=== PATIENT | male | born 1960 ===

== ENCOUNTER 2021-05-10 23:55 | Inpatient (IN) | payer SELFPAY ==
[2021-05-11 00:58] LABS: Hemoglobin 5.2 g/dL (14.0-18.0); Mean Corpuscular HGB CONC 29.4 g/dL (32.0-36.0); Mean Corpuscular Hemoglobin 20.9 pg (27.0-31.0); Mean Corpuscular Volume 70.9 fL (78.0-98.0); Mean Platelet Volume 8.8 fL (7.4-10.4); Platelet Count 200 thou/uL (130-400); Prothrombin Time 23.2 sec (12.0-14.7); Red Blood Cell (RBC) Count 2.49 mill/uL (4.70-6.10); White Blood Cell (WBC) Count 22.6 thou/uL (4.8-10.8)
[2021-05-11 00:59] LABS: PTT 33.6 sec (22.9-36.1)
[2021-05-11 01:12] LABS: ALT (SGPT) 17 U/L (8-55); AST (SGOT) 19 U/L (5-34); Alkaline Phosphatase 55 U/L (40-110); BUN (Urea Nitrogen) 18 mg/dL (8.4-25.7); Bilirubin, Total 1.8 mg/dL (0.2-1.2); Calc. Creatinine Clearance 0 mL/min (70-130); Calcium 7.1 mg/dL (7.8-10.44); Carbon Dioxide 16 mmol/L (23-31); Globulin 1.8 g/dL (2.4-3.5); Glucose 274 mg/dL (80-115); Protein, Total 3.8 g/dL (5.8-8.1)
[2021-05-11 01:15] LABS: Anisocytosis SLIGHT = 6-15 cells (100X) (0-5/hpf); Band 5 % (5-11); Hypochromia SLIGHT = 6-15 cells (100X) (0-5/hpf); MDiff Complete? YES; Microcytosis SLIGHT = 6-15 cells (100X) (0-5/hpf); Monocytes 1 % (0-10); Neutrophil 94 % (42-75); Polychromasia SLIGHT = 2-3 cells (100X) (0-2/hpf)
[2021-05-11 01:24] LABS: CKMB 2.3 ng/mL (0-6.6)
[2021-05-11 01:26] LABS: Chloride 101 mmol/L (98-107); Potassium 5.1 mmol/L (3.5-5.1); Sodium 131 mmol/L (136-145)
[2021-05-11 01:32] LABS: Anion Gap 19 mmol/L (10-20)
[2021-05-11] MEDS ORDERED: Pantoprazole 40 MG VIAL IVP SCH ×3 (02:00→09:00)
[2021-05-11] MEDS ORDERED: Ondansetron ODT 4 MG TAB PO PRN (02:08)
[2021-05-11] MEDS ORDERED: Acetaminophen 650 MG Suppository PR PRN (02:08)
[2021-05-11] MEDS ORDERED: Ondansetron PF 4 MG/2 ML Vial IVP PRN (02:08)
[2021-05-11] MEDS ORDERED: Acetaminophen 325 MG TAB PO PRN (02:08)
[2021-05-11] MEDS ORDERED: Furosemide 40 MG/4 ML VIAL SLOW IVP SCH (02:15)
[2021-05-11 02:54] LABS: Iron 18 ug/dL (65-175); Iron Binding Capacity, Total 294 mcg/dL (261-462)
[2021-05-11 03:12] LABS: Troponin I 0.091 ng/mL (< 0.028)
[2021-05-11 03:23] LABS: SARS-CoV-2 NAA Rapid Test Not Detected (NotDetected)
[2021-05-11 04:32] LABS: #Lymphocytes 0.8 thou/uL (1.20-3.40); #Monocytes 1.6 thou/uL (0.11-0.59); %Lymphocytes 4.2 % (21.0-51.0); %Monocytes 8.2 % (0.0-10.0); %Neutrophils 87.6 % (42.0-75.0); Hemoglobin 6.2 g/dL (14.0-18.0); Mean Corpuscular HGB CONC 28.6 g/dL (32.0-36.0); Mean Corpuscular Hemoglobin 21.4 pg (27.0-31.0); Mean Corpuscular Volume 74.8 fL (78.0-98.0); Mean Platelet Volume 8.9 fL (7.4-10.4); Platelet Count 189 thou/uL (130-400); RBC Distribution Width 17.9 % (11.5-14.5); Red Blood Cell (RBC) Count 2.91 mill/uL (4.70-6.10); White Blood Cell (WBC) Count 19.4 thou/uL (4.8-10.8)
[2021-05-11 04:37] LABS: Hemoglobin A1c 5.1 % (4.0-6.0)
[2021-05-11 04:51] LABS: Anion Gap 18 mmol/L (10-20); BUN (Urea Nitrogen) 21 mg/dL (8.4-25.7); Calc. Creatinine Clearance 0 mL/min (70-130); Calcium 7.6 mg/dL (7.8-10.44); Carbon Dioxide 17 mmol/L (23-31); Chloride 101 mmol/L (98-107); Glucose 224 mg/dL (80-115); Magnesium 1.6 mg/dL (1.6-2.6); Potassium 5.3 mmol/L (3.5-5.1); Sodium 131 mmol/L (136-145)
[2021-05-11 04:57] LABS: Lactic Acid 6.8 mmol/L (0.5-2.2)
[2021-05-11 06:26] LABS: Bacteria/HPF None Seen HPF (None Seen); Bilirubin Negative (Negative); Blood, Urine Negative (Negative); Clarity Clear (Clear); Glucose, Urine (Dipstick) Normal (Negative); Ketone, Urine Negative (Negative); Leukocyte Negative Leu/uL (Negative); Nitrite Negative (Negative); Protein, Urine (Dipstick) Negative (Neg-Trace); RBC/HPF 0-3 HPF (0-3); Specific Gravity, Urine 1.009 (1.002-1.036); Squamous Epithelial 0-3 HPF (0-3); Urobilinogen Normal mg/dL (Less than 2); WBC/HPF 0-3 HPF (0-3)
[2021-05-11 06:30] LABS: Urine Culture Reflex No No
[2021-05-11] MEDS: Furosemide 40 MG/4 ML VIAL SLOW IVP SCH (08:16)
[2021-05-11] MEDS ORDERED: FLU VACC QS2021-22(6MOS UP)/PF 60 MCG/0.5 ML SYRINGE IM ONE (09:00)
[2021-05-11 09:31] LABS: Hemoglobin 7.1 g/dL (14.0-18.0); Mean Corpuscular HGB CONC 30.7 g/dL (32.0-36.0); Mean Corpuscular Hemoglobin 23.6 pg (27.0-31.0); Mean Corpuscular Volume 76.7 fL (78.0-98.0); Platelet Count 160 thou/uL (130-400); Red Blood Cell (RBC) Count 3.03 mill/uL (4.70-6.10)
[2021-05-11] MEDS ORDERED: Iopamidol 370 76% 100 ML VIAL ONE (09:44)
[2021-05-11 09:45] LABS: Troponin I 0.096 ng/mL (< 0.028)
[2021-05-11 14:25] LABS: ALT (SGPT) 24 U/L (8-55); AST (SGOT) 24 U/L (5-34); Albumin 2.2 g/dL (3.4-4.8); Alkaline Phosphatase 62 U/L (40-110); Anion Gap 18 mmol/L (10-20); BUN (Urea Nitrogen) 22 mg/dL (8.4-25.7); Bilirubin, Total 3.3 mg/dL (0.2-1.2); Calc. Creatinine Clearance 169 mL/min (70-130); Calcium 7.6 mg/dL (7.8-10.44); Carbon Dioxide 18 mmol/L (23-31); Chloride 98 mmol/L (98-107); Globulin 2.2 g/dL (2.4-3.5); Glucose 199 mg/dL (80-115); Potassium 4.8 mmol/L (3.5-5.1); Protein, Total 4.4 g/dL (5.8-8.1); Sodium 129 mmol/L (136-145)
[2021-05-11] MEDS ORDERED: Ondansetron PF 4 MG/2 ML Vial ONE (16:07)
[2021-05-11] MEDS ORDERED: Succinylcholine 200 MG/10 ml SYRINGE FS ONE (16:07)
[2021-05-11] MEDS ORDERED: PHENYLEPHRINE-NS 100 MCG/ML 10 ML SYRINGE ONE (16:07)
[2021-05-11] MEDS ORDERED: PROPOFOL 200 MG/20 ML VIAL ONE (16:07)
[2021-05-11] MEDS ORDERED: Metoclopramide HCl 10 MG/2 ML VIAL ONE (16:07)
[2021-05-11 17:40] LABS: CO2 Tension 47.1 mmHg (35.0-45.0); pH, Arterial 7.34 (7.35-7.45)
[2021-05-11 17:41] LABS: ALV-art Gradient 598.225 mmHg (0-20); Base Excess (BEa) -1.2 mEq/L (-2.0 to +3.0); O2 Tension (PaO2), arterial 55.9 mmHg (> 80.0); Potassium - ABG Lab 4.95 mmol/L (3.70-5.30); Puncture Site RRA
[2021-05-11] MEDS ORDERED: Propofol 1,000 MG/100 ML VIAL IV ONE (17:42)
[2021-05-11] MEDS ORDERED: Dexmedetomidine 200 MCG/2 ML VIAL SLOW IVP SCH (17:45)
[2021-05-11 18:07] LABS: Hemoglobin 7.1 g/dL (14.0-18.0); Mean Corpuscular HGB CONC 30.9 g/dL (32.0-36.0); Mean Corpuscular Hemoglobin 23.1 pg (27.0-31.0); Mean Corpuscular Volume 74.8 fL (78.0-98.0); Mean Platelet Volume 9.2 fL (7.4-10.4); Platelet Count 224 thou/uL (130-400); RBC Distribution Width 19.9 % (11.5-14.5); Red Blood Cell (RBC) Count 3.06 mill/uL (4.70-6.10); White Blood Cell (WBC) Count 15.2 thou/uL (4.8-10.8)
[2021-05-11 18:16] LABS: Lactic Acid 3.6 mmol/L (0.5-2.2)
[2021-05-11 18:18] LABS: ALT (SGPT) 20 U/L (8-55); AST (SGOT) 25 U/L (5-34); Albumin 2.3 g/dL (3.4-4.8); Alkaline Phosphatase 63 U/L (40-110); Anion Gap 10 mmol/L (10-20); BUN (Urea Nitrogen) 25 mg/dL (8.4-25.7); Bilirubin, Total 3.3 mg/dL (0.2-1.2); Calc. Creatinine Clearance 136 mL/min (70-130); Calcium 7.5 mg/dL (7.8-10.44); Carbon Dioxide 26 mmol/L (23-31); Chloride 100 mmol/L (98-107); Globulin 2.2 g/dL (2.4-3.5); Glucose 200 mg/dL (80-115); Protein, Total 4.5 g/dL (5.8-8.1); Sodium 131 mmol/L (136-145)
[2021-05-11 18:38] LABS: Actual Bicarbonate (HCO3a) 26.4 mEq/L (22-28); Analyzer IN Cardio ER; Base Excess (BEa) 1.2 mEq/L (-2.0 to +3.0); CO2 Tension 45.1 mmHg (35.0-45.0); Calcium, Ionized (arterial) 1.08 mmol/L (1.12-1.30); Carboxyhemoglobin (COHb) 1.3 gm% (0.0-3.0); O2 Tension (PaO2), arterial 218.9 mmHg (> 80.0); Potassium - ABG Lab 4.94 mmol/L (3.70-5.30); pH, Arterial 7.39 (7.35-7.45)
[2021-05-11] MEDS: Octreotide Acetate 1,250 MCG in Sodium Chloride 0.9% 250 ML 250 ML IVPB SCH (18:42)
[2021-05-11 18:46] LABS: Band 8 % (5-11); Eosinophils 2 % (0-10); Hypochromia SLIGHT = 6-15 cells (100X) (0-5/hpf); Lymphocytes 6 % (21-51); MDiff Complete? YES; Microcytosis SLIGHT = 6-15 cells (100X) (0-5/hpf); Monocytes 11 % (0-10); Neutrophil 71 % (42-75); Ovalocytes SLIGHT = 2-5 cells (100X) (0-1/hpf); Platelet Morphology Comment Appears Adequate; Polychromasia SLIGHT = 2-3 cells (100X) (0-2/hpf); Reactive Lymphocytes 1 % (0-10); Target Cells SLIGHT = 2-5 cells (100X) (0-1/hpf)
[2021-05-11] MEDS ORDERED: Ventilator Sedation Protocol 1 EACH FS SCH (19:15)
[2021-05-11] MEDS ORDERED: Morphine 4 MG/ML VIAL SLOW IVP PRN (19:30)
[2021-05-11] MEDS ORDERED: DISCONTINUE PREVIOUS NARCOTIC PAIN MEDICATIONS AND BENZODIAZEPINES FS SCH (19:30)
[2021-05-11] MEDS ORDERED: Lorazepam 2 MG/ML VIAL SLOW IVP PRN (19:30)
[2021-05-11] MEDS ORDERED: Propofol BOLUS 1,000 MG/100 ML VIAL IV PRN (19:30)
[2021-05-11] MEDS ORDERED: Fentanyl BOLUS 250 ML IVPB PRN (19:30)
[2021-05-11] MEDS: fentaNYL Citrate/PF 2,000 MCG in Sodium Chloride 0.9% 60 ML IV SCH (20:40)
[2021-05-11] MEDS: Multivitamins, Adult 10 ML, Folic Acid 1 MG in Dextrose 5 %-0.45 % NaCl 1,000 ML IV SCH (20:41)
[2021-05-11] MEDS: Pantoprazole 80 MG, Admixture Fee 1 EACH in Sodium Chloride 0.9% 100 ML IVPB SCH ×2 (20:42→23:10)
[2021-05-11] MEDS: Propofol 1,000 MG/100 ML VIAL IV PRN ×2 (20:42→23:15)
[2021-05-11] MEDS ORDERED: Furosemide 20 MG/2 ML VIAL SLOW IVP SCH (22:00)
[2021-05-11] MEDS ORDERED: Meropenem 1 GM in Sodium Chloride 0.9% 100 ML IVPB SCH (22:30)
[2021-05-11] MEDS: Meropenem 1 GM in Sodium Chloride 0.9% 100 ML IVPB SCH (22:56)
[2021-05-12 03:38] LABS: Hemoglobin 5.6 g/dL (14.0-18.0); Mean Corpuscular HGB CONC 30.7 g/dL (32.0-36.0); Mean Corpuscular Hemoglobin 23.1 pg (27.0-31.0); Mean Corpuscular Volume 75.2 fL (78.0-98.0); RBC Distribution Width 19.7 % (11.5-14.5); Red Blood Cell (RBC) Count 2.41 mill/uL (4.70-6.10); White Blood Cell (WBC) Count 7.9 thou/uL (4.8-10.8)
[2021-05-12 03:47] LABS: #Basophils 0.1 thou/uL (0.0-0.2); #Eosinphils 0.1 thou/uL (0.0-0.7); #Lymphocytes 0.7 thou/uL (1.20-3.40); #Neutrophils 6.1 thou/uL (1.40-6.50); %Basophils 1.3 % (0.0-1.0); %Eosinophils 0.7 % (0.0-10.0); %Lymphocytes 8.3 % (21.0-51.0); %Monocytes 12.3 % (0.0-10.0); %Neutrophils 77.4 % (42.0-75.0); Anisocytosis SLIGHT = 6-15 cells (100X) (0-5/hpf); MDiff Complete? YES; Mean Platelet Volume 9.9 fL (7.4-10.4); Platelet Count 115 thou/uL (130-400); Platelet Morphology Comment Appears Decreased; Polychromasia SLIGHT = 2-3 cells (100X) (0-2/hpf)
[2021-05-12] MEDS ORDERED: Lactulose 10 GM/15 ML Oral Solution PR SCH ×2 (04:00→21:45)
[2021-05-12 04:25] LABS: ALT (SGPT) 19 U/L (8-55); AST (SGOT) 21 U/L (5-34); Alkaline Phosphatase 50 U/L (40-110); Anion Gap 5 mmol/L (10-20); BUN (Urea Nitrogen) 30 mg/dL (8.4-25.7); Bilirubin, Total 1.7 mg/dL (0.2-1.2); Calc. Creatinine Clearance 111 mL/min (70-130); Calcium 7.5 mg/dL (7.8-10.44); Carbon Dioxide 32 mmol/L (23-31); Chloride 101 mmol/L (98-107); Globulin 1.8 g/dL (2.4-3.5); Glucose 190 mg/dL (80-115); Lipase 12 U/L (8-78); Magnesium 1.8 mg/dL (1.6-2.6); Phosphorus 4.3 mg/dL (2.3-4.7); Potassium 5.1 mmol/L (3.5-5.1); Protein, Total 3.8 g/dL (5.8-8.1); Sodium 133 mmol/L (136-145)
[2021-05-12 04:39] LABS: HBSAg Index 0.36 S/CO (0-0.99); Hep B Surf Ag Non-Reactive S/CO (NonReactive)
[2021-05-12 04:40] LABS: Hep A IgM AB Non-Reactive (NonReactive); Hep A IgM S/CO 0.09 S/CO (0-0.79); Hep C IgG Ab Non-Reactive (NonReactive); Hep C Index 0.13 S/CO (0-0.79)
[2021-05-12 04:42] LABS: HBCM Index 0.23 S/CO (0-0.79); Hepatitis B Core IgM Abs Non-Reactive (NonReactive)
[2021-05-12 04:52] LABS: Vitamin B12 1419 pg/mL (211-911)
[2021-05-12] MEDS: Meropenem 1 GM in Sodium Chloride 0.9% 100 ML IVPB SCH ×3 (05:46→21:23)
[2021-05-12 07:22] LABS: Lactic Acid 2.6 mmol/L (0.5-2.2)
[2021-05-12] MEDS ORDERED: Albumin 25% 25 GM/100 ML BOT IVPB SCH ×4 (08:00→09:45)
[2021-05-12] MEDS: Furosemide 40 MG/4 ML VIAL SLOW IVP SCH (09:25)
[2021-05-12 09:33] LABS: Fluid, Amylase 8 U/L (Not Available); Fluid, Protein Less than 1.0 g/dL (Not Available)
[2021-05-12] MEDS: Propofol 1,000 MG/100 ML VIAL IV PRN ×2 (09:35→17:07)
[2021-05-12 09:41] LABS: #Basophils 0.1 thou/uL (0.0-0.2); #Eosinphils 0.1 thou/uL (0.0-0.7); #Lymphocytes 0.6 thou/uL (1.20-3.40); #Neutrophils 6.7 thou/uL (1.40-6.50); %Basophils 1.5 % (0.0-1.0); %Eosinophils 1.7 % (0.0-10.0); %Lymphocytes 6.9 % (21.0-51.0); %Monocytes 12.1 % (0.0-10.0); %Neutrophils 77.8 % (42.0-75.0); Hemoglobin 6.6 g/dL (14.0-18.0); Mean Corpuscular HGB CONC 29.6 g/dL (32.0-36.0); Mean Corpuscular Hemoglobin 23.3 pg (27.0-31.0); Mean Corpuscular Volume 78.6 fL (78.0-98.0); Mean Platelet Volume 9.5 fL (7.4-10.4); Platelet Count 117 thou/uL (130-400); RBC Distribution Width 20.6 % (11.5-14.5); Red Blood Cell (RBC) Count 2.84 mill/uL (4.70-6.10); White Blood Cell (WBC) Count 8.6 thou/uL (4.8-10.8)
[2021-05-12 09:52] LABS: RBC Count-Automated (BF) 2676 /cu.mm; WBC/Nucleated-Auto (BF) 4768 /cu.mm
[2021-05-12 09:59] LABS: Hypochromia MODERATE=16-30 cells (100X) (0-5/hpf); MDiff Complete? YES; Microcytosis SLIGHT = 6-15 cells (100X) (0-5/hpf); Platelet Morphology Comment Appears Decreased; Polychromasia SLIGHT = 2-3 cells (100X) (0-2/hpf)
[2021-05-12 10:05] LABS: BF Color Yellow; Body Fluid Source Ascites Body Fluid; Clarity Hazy (Clear); Tube # EDTA
[2021-05-12 10:29] LABS: Lymphocytes 2 %
[2021-05-12 10:30] LABS: BF Segmented Neutrophils 76 %; Cell Count Non Hematic 22 %
[2021-05-12] MEDS: Pantoprazole 80 MG, Admixture Fee 1 EACH in Sodium Chloride 0.9% 100 ML IVPB SCH ×2 (11:36→20:39)
[2021-05-12 17:12] LABS: Hemoglobin 6.8 g/dL (14.0-18.0); Mean Corpuscular HGB CONC 30.2 g/dL (32.0-36.0); Mean Corpuscular Hemoglobin 24.2 pg (27.0-31.0); Mean Corpuscular Volume 80.1 fL (78.0-98.0); Mean Platelet Volume 9.6 fL (7.4-10.4); Platelet Count 93 thou/uL (130-400); RBC Distribution Width 20.2 % (11.5-14.5); Red Blood Cell (RBC) Count 2.82 mill/uL (4.70-6.10); White Blood Cell (WBC) Count 6.3 thou/uL (4.8-10.8)
[2021-05-12 17:34] LABS: Lactic Acid 1.3 mmol/L (0.5-2.2)
[2021-05-12] MEDS ORDERED: Furosemide 40 MG/4 ML VIAL SLOW IVP SCH (18:00)
[2021-05-12] MEDS: Multivitamins, Adult 10 ML, Folic Acid 1 MG in Dextrose 5 %-0.45 % NaCl 1,000 ML IV SCH (18:57)
[2021-05-12] MEDS: Octreotide Acetate 1,250 MCG in Sodium Chloride 0.9% 250 ML 250 ML IVPB SCH (20:39)
[2021-05-13] MEDS: Propofol 1,000 MG/100 ML VIAL IV PRN ×3 (00:59→16:40)
[2021-05-13] MEDS: fentaNYL Citrate/PF 2,000 MCG in Sodium Chloride 0.9% 60 ML IV SCH (03:31)
[2021-05-13 05:35] LABS: Hemoglobin 8.4 g/dL (14.0-18.0); Mean Corpuscular HGB CONC 30.9 g/dL (32.0-36.0); Mean Corpuscular Hemoglobin 25.5 pg (27.0-31.0); Mean Corpuscular Volume 82.6 fL (78.0-98.0); Mean Platelet Volume 9.8 fL (7.4-10.4); Platelet Count 83 thou/uL (130-400); RBC Distribution Width 20.3 % (11.5-14.5); Red Blood Cell (RBC) Count 3.27 mill/uL (4.70-6.10)
[2021-05-13 06:07] LABS: ALT (SGPT) 17 U/L (8-55); AST (SGOT) 24 U/L (5-34); Albumin 2.5 g/dL (3.4-4.8); Alkaline Phosphatase 47 U/L (40-110); Anion Gap 9 mmol/L (10-20); BUN (Urea Nitrogen) 27 mg/dL (8.4-25.7); Bilirubin, Total 3.5 mg/dL (0.2-1.2); Calc. Creatinine Clearance 117 mL/min (70-130); Calcium 7.8 mg/dL (7.8-10.44); Carbon Dioxide 27 mmol/L (23-31); Chloride 103 mmol/L (98-107); Globulin 1.7 g/dL (2.4-3.5); Glucose 138 mg/dL (80-115); Magnesium 1.9 mg/dL (1.6-2.6); Potassium 4.1 mmol/L (3.5-5.1); Protein, Total 4.2 g/dL (5.8-8.1); Sodium 135 mmol/L (136-145)
[2021-05-13] MEDS: Meropenem 1 GM in Sodium Chloride 0.9% 100 ML IVPB SCH ×3 (06:09→22:59)
[2021-05-13] MEDS: Pantoprazole 80 MG, Admixture Fee 1 EACH in Sodium Chloride 0.9% 100 ML IVPB SCH ×2 (09:03→18:28)
[2021-05-13 12:06] LABS: ANA Symphony (Qualitative) Negative (Negative); ANA Symphony (Quantitative) 0.3 Ratio (< 0.7 Negative); EliA Vaculitis New Method **** NEW METHOD ****; Mitochondrial Ab 0.7 U/mL (<4 Negative); dsDNA IgG Antibody 3.7 IU/mL (<10 Negative)
[2021-05-13 12:35] LABS: Hemoglobin 9.2 g/dL (14.0-18.0); Mean Corpuscular HGB CONC 30.7 g/dL (32.0-36.0); Mean Corpuscular Hemoglobin 25.3 pg (27.0-31.0); Mean Corpuscular Volume 82.5 fL (78.0-98.0); Mean Platelet Volume 10.6 fL (7.4-10.4); Platelet Count 104 thou/uL (130-400); RBC Distribution Width 20.7 % (11.5-14.5); Red Blood Cell (RBC) Count 3.64 mill/uL (4.70-6.10); White Blood Cell (WBC) Count 7.2 thou/uL (4.8-10.8)
[2021-05-13] MEDS ORDERED: Dexmedetomidine In 0.9 % NaCl 100 ML IVPB SCH (15:15)
[2021-05-13] MEDS ORDERED: Furosemide 40 MG/4 ML VIAL SLOW IVP SCH (15:30)
[2021-05-13 20:18] LABS: Hemoglobin 8.4 g/dL (14.0-18.0); Mean Corpuscular HGB CONC 31.7 g/dL (32.0-36.0); Mean Corpuscular Hemoglobin 25.9 pg (27.0-31.0); Mean Corpuscular Volume 81.6 fL (78.0-98.0); Platelet Count 85 thou/uL (130-400); RBC Distribution Width 20.9 % (11.5-14.5); Red Blood Cell (RBC) Count 3.26 mill/uL (4.70-6.10); White Blood Cell (WBC) Count 4.2 thou/uL (4.8-10.8)
[2021-05-13] MEDS ORDERED: Lactulose 10 GM/15 ML Oral Solution PR SCH (20:30)
[2021-05-13] MEDS: Albumin 25% 25 GM/100 ML BOT IVPB SCH (22:59)
[2021-05-13] MEDS: Octreotide Acetate 1,250 MCG in Sodium Chloride 0.9% 250 ML 250 ML IVPB SCH (23:16)
[2021-05-13] MEDS: Multivitamins, Adult 10 ML, Folic Acid 1 MG in Dextrose 5 %-0.45 % NaCl 1,000 ML IV SCH (23:58)
[2021-05-14] MEDS: Propofol 1,000 MG/100 ML VIAL IV PRN (00:34)
[2021-05-14] MEDS: Pantoprazole 80 MG, Admixture Fee 1 EACH in Sodium Chloride 0.9% 100 ML IVPB SCH ×2 (03:56→15:07)
[2021-05-14 04:34] LABS: Hemoglobin 8.2 g/dL (14.0-18.0); Mean Corpuscular HGB CONC 31.2 g/dL (32.0-36.0); Mean Corpuscular Hemoglobin 25.7 pg (27.0-31.0); Mean Corpuscular Volume 82.5 fL (78.0-98.0); Mean Platelet Volume 10.5 fL (7.4-10.4); Platelet Count 78 thou/uL (130-400); RBC Distribution Width 20.8 % (11.5-14.5); White Blood Cell (WBC) Count 3.1 thou/uL (4.8-10.8)
[2021-05-14] MEDS: Albumin 25% 25 GM/100 ML BOT IVPB SCH ×3 (05:41→21:18)
[2021-05-14] MEDS: Meropenem 1 GM in Sodium Chloride 0.9% 100 ML IVPB SCH ×3 (05:44→22:14)
[2021-05-14] MEDS ORDERED: Furosemide 40 MG/4 ML VIAL SLOW IVP SCH (06:45)
[2021-05-14 15:17] LABS: Smooth Muscle Total ABS 17 Units (0-19)
[2021-05-14] MEDS ORDERED: Morphine 4 MG/ML VIAL SLOW IVP PRN (17:12)
[2021-05-14] MEDS ORDERED: Pantoprazole 80 MG in Sodium Chloride 0.9% 100 ML IVPB SCH (17:15)
[2021-05-14] MEDS: Pantoprazole 40 MG VIAL IVP SCH (21:18)
[2021-05-15 04:54] LABS: #Basophils 0.1 thou/uL (0.0-0.2); #Eosinphils 0.2 thou/uL (0.0-0.7); #Lymphocytes 0.4 thou/uL (1.20-3.40); #Monocytes 0.6 thou/uL (0.11-0.59); #Neutrophils 3.7 thou/uL (1.40-6.50); %Basophils 1.5 % (0.0-1.0); %Eosinophils 3.2 % (0.0-10.0); %Lymphocytes 7.3 % (21.0-51.0); %Neutrophils 75.1 % (42.0-75.0); Mean Corpuscular HGB CONC 30.8 g/dL (32.0-36.0); Mean Corpuscular Hemoglobin 25.7 pg (27.0-31.0); Mean Corpuscular Volume 83.5 fL (78.0-98.0); Mean Platelet Volume 10.4 fL (7.4-10.4); Platelet Count 83 thou/uL (130-400); RBC Distribution Width 22.3 % (11.5-14.5); White Blood Cell (WBC) Count 4.9 thou/uL (4.8-10.8)
[2021-05-15 05:10] LABS: ALT (SGPT) 13 U/L (8-55); AST (SGOT) 22 U/L (5-34); Albumin 2.9 g/dL (3.4-4.8); Alkaline Phosphatase 45 U/L (40-110); Anion Gap 10 mmol/L (10-20); BUN (Urea Nitrogen) 24 mg/dL (8.4-25.7); Bilirubin, Total 2.3 mg/dL (0.2-1.2); Calc. Creatinine Clearance 147 mL/min (70-130); Calcium 8.2 mg/dL (7.8-10.44); Carbon Dioxide 29 mmol/L (23-31); Chloride 105 mmol/L (98-107); Globulin 1.6 g/dL (2.4-3.5); Glucose 122 mg/dL (80-115); Phosphorus 2.9 mg/dL (2.3-4.7); Potassium 3.7 mmol/L (3.5-5.1); Protein, Total 4.5 g/dL (5.8-8.1); Sodium 140 mmol/L (136-145)
[2021-05-15] MEDS: Meropenem 1 GM in Sodium Chloride 0.9% 100 ML IVPB SCH ×3 (05:48→21:02)
[2021-05-15] MEDS: Furosemide 40 MG/4 ML VIAL SLOW IVP SCH (08:29)
[2021-05-15] MEDS: Pantoprazole 40 MG VIAL IVP SCH ×2 (08:29→20:47)
[2021-05-15] MEDS ORDERED: Pantoprazole 40 MG VIAL IVP SCH (09:00)
[2021-05-15] MEDS ORDERED: Spironolactone 100 MG TAB PO SCH (13:30)
[2021-05-16 04:45] LABS: #Basophils 0.1 thou/uL (0.0-0.2); #Eosinphils 0.2 thou/uL (0.0-0.7); #Lymphocytes 0.6 thou/uL (1.20-3.40); #Monocytes 0.7 thou/uL (0.11-0.59); #Neutrophils 4.1 thou/uL (1.40-6.50); %Basophils 0.9 % (0.0-1.0); %Eosinophils 3.3 % (0.0-10.0); %Lymphocytes 10.1 % (21.0-51.0); %Monocytes 12.8 % (0.0-10.0); %Neutrophils 72.9 % (42.0-75.0); Hemoglobin 8.2 g/dL (14.0-18.0); Mean Corpuscular HGB CONC 30.5 g/dL (32.0-36.0); Mean Corpuscular Hemoglobin 25.5 pg (27.0-31.0); Mean Corpuscular Volume 83.8 fL (78.0-98.0); Mean Platelet Volume 10.1 fL (7.4-10.4); Platelet Count 83 thou/uL (130-400); RBC Distribution Width 22.8 % (11.5-14.5); Red Blood Cell (RBC) Count 3.19 mill/uL (4.70-6.10); White Blood Cell (WBC) Count 5.6 thou/uL (4.8-10.8)
[2021-05-16 05:02] LABS: Anion Gap 10 mmol/L (10-20); BUN (Urea Nitrogen) 22 mg/dL (8.4-25.7); Calc. Creatinine Clearance 177 mL/min (70-130); Calcium 7.8 mg/dL (7.8-10.44); Carbon Dioxide 30 mmol/L (23-31); Chloride 102 mmol/L (98-107); Glucose 129 mg/dL (80-115); Potassium 3.7 mmol/L (3.5-5.1); Sodium 138 mmol/L (136-145)
[2021-05-16] MEDS: Meropenem 1 GM in Sodium Chloride 0.9% 100 ML IVPB SCH ×3 (05:48→21:07)
[2021-05-16] MEDS: Pantoprazole 40 MG VIAL IVP SCH ×2 (09:05→21:07)
[2021-05-16] MEDS: Spironolactone 100 MG TAB PO SCH (09:05)
[2021-05-16] MEDS: Furosemide 40 MG/4 ML VIAL SLOW IVP SCH (09:05)
[2021-05-16 11:22] LABS: INR-International Normal Ratio 1.3; Prothrombin Time 16.3 sec (12.0-14.7)
[2021-05-16 11:23] LABS: PTT 33.1 sec (22.9-36.1)
[2021-05-17 06:24] LABS: Hemoglobin 8.5 g/dL (14.0-18.0); Mean Corpuscular HGB CONC 30.3 g/dL (32.0-36.0); Mean Corpuscular Volume 82.5 fL (78.0-98.0); Mean Platelet Volume 10.5 fL (7.4-10.4); Platelet Count 78 thou/uL (130-400); RBC Distribution Width 23.2 % (11.5-14.5); White Blood Cell (WBC) Count 5.5 thou/uL (4.8-10.8)
[2021-05-17 06:33] LABS: Anion Gap 8 mmol/L (10-20); BUN (Urea Nitrogen) 20 mg/dL (8.4-25.7); Calc. Creatinine Clearance 190 mL/min (70-130); Calcium 7.7 mg/dL (7.8-10.44); Carbon Dioxide 32 mmol/L (23-31); Chloride 99 mmol/L (98-107); Glucose 120 mg/dL (80-115); Potassium 3.6 mmol/L (3.5-5.1); Sodium 135 mmol/L (136-145)
[2021-05-17] MEDS: Meropenem 1 GM in Sodium Chloride 0.9% 100 ML IVPB SCH ×3 (06:45→21:00)
[2021-05-17] MEDS: Nadolol 40 MG TAB PO SCH (08:56)
[2021-05-17] MEDS: Pantoprazole 40 MG VIAL IVP SCH ×2 (08:56→21:00)
[2021-05-17] MEDS: Spironolactone 100 MG TAB PO SCH (08:56)
[2021-05-17] MEDS: Furosemide 40 MG/4 ML VIAL SLOW IVP SCH (08:56)
[2021-05-17] MEDS ORDERED: Furosemide 40 MG/4 ML VIAL SLOW IVP SCH (13:30)
[2021-05-17 21:48] LABS: SARS-CoV-2 PCR by NAA Not Detected (NotDetected)
[2021-05-18 06:08] LABS: Mean Corpuscular HGB CONC 31.1 g/dL (32.0-36.0); Mean Corpuscular Hemoglobin 26.1 pg (27.0-31.0); Mean Corpuscular Volume 83.8 fL (78.0-98.0); Mean Platelet Volume 9.7 fL (7.4-10.4); Platelet Count 99 thou/uL (130-400); RBC Distribution Width 22.9 % (11.5-14.5); Red Blood Cell (RBC) Count 3.44 mill/uL (4.70-6.10); White Blood Cell (WBC) Count 6.8 thou/uL (4.8-10.8)
[2021-05-18] MEDS: Meropenem 1 GM in Sodium Chloride 0.9% 100 ML IVPB SCH (06:15)
[2021-05-18 06:23] LABS: Anion Gap 8 mmol/L (10-20); BUN (Urea Nitrogen) 19 mg/dL (8.4-25.7); Calc. Creatinine Clearance 188 mL/min (70-130); Calcium 7.7 mg/dL (7.8-10.44); Carbon Dioxide 31 mmol/L (23-31); Chloride 99 mmol/L (98-107); Glucose 126 mg/dL (80-115); Potassium 3.8 mmol/L (3.5-5.1); Sodium 134 mmol/L (136-145)
[2021-05-18] MEDS: Spironolactone 100 MG TAB PO SCH (07:59)
[2021-05-18] MEDS: Furosemide 40 MG/4 ML VIAL SLOW IVP SCH (07:59)
[2021-05-18] MEDS: Nadolol 40 MG TAB PO SCH (07:59)
[2021-05-18] MEDS: Pantoprazole 40 MG VIAL IVP SCH ×2 (07:59→21:00)
[2021-05-18 21:36] LABS: A/G Ratio 1.7 (0.7-1.7); Albumin 2.5 g/dL (2.9-4.4); Alpha 1 0.2 g/dL (0.0-0.4); Alpha 2 0.3 g/dL (0.4-1.0); Beta 0.4 g/dL (0.7-1.3); Gamma 0.5 g/dL (0.4-1.8); Globulin, Total 1.5 g/dL (2.2-3.9); M-Spike Not Observed g/dL (Not Observed)
[2021-05-19 05:38] LABS: Hemoglobin 8.8 g/dL (14.0-18.0); Mean Corpuscular HGB CONC 30.8 g/dL (32.0-36.0); Mean Corpuscular Volume 84.4 fL (78.0-98.0); Mean Platelet Volume 10.3 fL (7.4-10.4); Platelet Count 107 thou/uL (130-400); RBC Distribution Width 23.1 % (11.5-14.5); Red Blood Cell (RBC) Count 3.39 mill/uL (4.70-6.10); White Blood Cell (WBC) Count 6.2 thou/uL (4.8-10.8)
[2021-05-19 06:07] LABS: Anion Gap 9 mmol/L (10-20); BUN (Urea Nitrogen) 18 mg/dL (8.4-25.7); Calc. Creatinine Clearance 149 mL/min (70-130); Calcium 7.7 mg/dL (7.8-10.44); Carbon Dioxide 31 mmol/L (23-31); Chloride 97 mmol/L (98-107); Glucose 109 mg/dL (80-115); Potassium 3.7 mmol/L (3.5-5.1); Sodium 133 mmol/L (136-145)
[2021-05-19] MEDS: Furosemide 40 MG TAB PO SCH (08:36)
[2021-05-19] MEDS: Pantoprazole 40 MG VIAL IVP SCH (08:36)
[2021-05-19] MEDS: Spironolactone 100 MG TAB PO SCH (08:36)
[2021-05-19] MEDS: Nadolol 40 MG TAB PO SCH (08:36)
[2021-05-19 15:39] LABS: A1 Antitrypsin Phenotype Inter MS (.); Alpha-1-Antitrypsin 120 mg/dL (101-187)
[2021-05-20 06:24] LABS: Anion Gap 8 mmol/L (10-20); BUN (Urea Nitrogen) 17 mg/dL (8.4-25.7); Calc. Creatinine Clearance 172 mL/min (70-130); Calcium 7.8 mg/dL (7.8-10.44); Carbon Dioxide 31 mmol/L (23-31); Chloride 97 mmol/L (98-107); Glucose 129 mg/dL (80-115); Potassium 3.8 mmol/L (3.5-5.1); Sodium 132 mmol/L (136-145)
[2021-05-20] MEDS: Spironolactone 100 MG TAB PO SCH (07:48)
[2021-05-20] MEDS: Nadolol 40 MG TAB PO SCH (07:48)
[2021-05-20] MEDS: Furosemide 40 MG TAB PO SCH (07:48)
[2021-05-21 06:21] LABS: Anion Gap 8 mmol/L (10-20); BUN (Urea Nitrogen) 15 mg/dL (8.4-25.7); Calc. Creatinine Clearance 159 mL/min (70-130); Carbon Dioxide 31 mmol/L (23-31); Chloride 97 mmol/L (98-107); Glucose 135 mg/dL (80-115); Sodium 132 mmol/L (136-145)
[2021-05-21] MEDS: Spironolactone 100 MG TAB PO SCH (07:49)
[2021-05-21] MEDS: Furosemide 40 MG TAB PO SCH (07:49)
[2021-05-21] MEDS: Nadolol 40 MG TAB PO SCH (07:49)
[2021-05-21 14:00] VITALS: BMI 33.8
[2021-05-21 21:12] LABS: H. pylori IgA ABS Greater than 35.0 units (0.0-8.9); H. pylori IgG ABS 2.63 (0.00-0.79); H. pylori IgM ABS Less than 9.0 units (0.0-8.9)
[2021-05-22 07:56] VITALS: BP 95/57; TEMP 97.7
[2021-05-22] MEDS: Furosemide 40 MG TAB PO SCH (08:15)
[2021-05-22] MEDS: Spironolactone 100 MG TAB PO SCH (08:15)
[2021-05-22] MEDS: Nadolol 40 MG TAB PO SCH (08:15)
== END 2021-05-22 13:54 | disposition home or self-care (01) | DRG 871 ==
LOC: ERS 23:55 → IMCU/EMU 05-11 01:46 → CCU 05-11 18:23 → IMCU/EMU 05-15 11:06 → T4-B 05-16 15:00
PROVIDERS: ADMIT Student in an Organized Health Care Education/Training Program; ATTEND Internal Medicine
PROC: 06L38CZ Occlusion of Esophageal Vein with Extraluminal Device, Via Natural or Artificial Opening Endoscopic (ICD-10-PCS; principal; 2021-05-11)
PROC: 30233N1 Transfusion of Nonautologous Red Blood Cells into Peripheral Vein, Percutaneous Approach (ICD-10-PCS; 2021-05-11)
PROC: 0W3P8ZZ Control Bleeding in Gastrointestinal Tract, Via Natural or Artificial Opening Endoscopic (ICD-10-PCS; 2021-05-11)
PROC: 3E03329 Introduction of Other Anti-infective into Peripheral Vein, Percutaneous Approach (ICD-10-PCS; 2021-05-11)
PROC: 0BH17EZ Insertion of Endotracheal Airway into Trachea, Via Natural or Artificial Opening (ICD-10-PCS; 2021-05-11)
PROC: 5A1945Z Respiratory Ventilation, 24-96 Consecutive Hours (ICD-10-PCS; 2021-05-11)
PROC: 0W9G3ZX Drainage of Peritoneal Cavity, Percutaneous Approach, Diagnostic (ICD-10-PCS; 2021-05-12)
DX: A40.8 Other streptococcal sepsis (principal); K25.4 Chronic or unspecified gastric ulcer with hemorrhage; K65.2 Spontaneous bacterial peritonitis; I85.11 Secondary esophageal varices with bleeding; J18.9 Pneumonia, unspecified organism; J96.01 Acute respiratory failure with hypoxia; I50.31 Acute diastolic (congestive) heart failure; E87.1 Hypo-osmolality and hyponatremia; E87.2 Acidosis; K76.6 Portal hypertension; R18.8 Other ascites; N17.9 Acute kidney failure, unspecified; I24.8 Other forms of acute ischemic heart disease; Z68.41 Body mass index [BMI] 40.0-44.9, adult; K74.60 Unspecified cirrhosis of liver; Z20.822 Contact with and (suspected) exposure to COVID-19; Z66 Do not resuscitate; E87.70 Fluid overload, unspecified; R33.9 Retention of urine, unspecified; K31.89 Other diseases of stomach and duodenum; K26.9 Duodenal ulcer, unspecified as acute or chronic, without hemorrhage or perforation; K72.90 Hepatic failure, unspecified without coma; J45.20 Mild intermittent asthma, uncomplicated; Z87.09 Personal history of other diseases of the respiratory system; Z88.0 Allergy status to penicillin; Z80.9 Family history of malignant neoplasm, unspecified; Z83.3 Family history of diabetes mellitus; D50.0 Iron deficiency anemia secondary to blood loss (chronic); I11.0 Hypertensive heart disease with heart failure; E66.01 Morbid (severe) obesity due to excess calories
CPT/HCPCS: 36415; 36430; 36600; 71045; 74177; 76705; 80048; 80053; 80074; 81001; 82042; 82103; 82104; 82105; 82140; 82150; 82390; 82553; 82607; 82728; 82746; 82805; 83036; 83516; 83540; 83550; 83605; 83690; 83735; 83880; 84100; 84157; 84165; 84443; 84484; 85025; 85027; 85060; 85610; 85730; 86015; 86038; 86225; 86850; 86900; 86901; 87040; 87070; 87149; 87205; 88112; 88305; 88341; 88342; 89051; 93005; 93306; 94002; 94003; C1776; C9113; J1940; J1956; J2060; J2185; J2270; J2354; J2405; J2704; J2765; J3010; J3411; J3490; J7042; J7050; J7620; P9016; P9047; Q9967; U0002; U0003; U0005